=== PATIENT | female | born 1975 | race Caucasian/White ===

== ENCOUNTER 2021-10-04 12:45 | Outpatient (REF) | payer OTHER, SELFPAY ==
--- NOTE | ~2021-10-04 | MM_ITS ---
EXAMINATION: MM SCREENING DIGITAL BREAST TOMOSYNTHESIS, BILATERAL CLINICAL INFORMATION: Screening. Asymptomatic. The lifetime risk of breast cancer based on the Tyrer-Cuzick Model is 15%. COMPARISON: Mammography: 01/12/2019, 10/19/2017, 04/13/2016 TECHNIQUE: Digital mammography is performed in craniocaudal and mediolateral oblique views along with computer-aided detection (CAD). Digital breast tomosynthesis is performed in implant-displaced craniocaudal and implant-displaced mediolateral oblique views along with computer-aided detection (CAD). Synthesized 2D images are generated from the tomosynthesis. FINDINGS: There are scattered areas of fibroglandular density (ACR BI-RADS breast composition Category b). There are bilateral implants. Contours are smooth and similar to prior studies. Parenchymal pattern is similar to prior exams. There is no developing density or interval mass or architectural abnormality. No abnormal calcifications. The axilla and skin contours are unremarkable. No significant changes from prior exams. MM/MM tomosynthesis screen imp BI IMPRESSION: No mammographic evidence of malignancy. ASSESSMENT: BI-RADS 1: Negative RECOMMENDATION: Routine annual mammography screening. This patient's information was entered into a reminder system with a target due date for their next mammogram.
== END 2021-10-04 12:46 | disposition home or self-care (01) ==
LOC: HO.MAMMO 12:45
PROVIDERS: PCP Internal Medicine; Visit Provider Internal Medicine
DX: Z12.31 Encounter for screening mammogram for malignant neoplasm of breast (principal)
CPT/HCPCS: 77063; 77067

== ENCOUNTER 2022-03-22 10:54 | Outpatient (REF) | payer OTHER, SELFPAY ==
[2022-03-22 13:36] LABS: Basophils Percent Auto 0.6 % (0-2); Eosinophils Absolute Auto 0.1 X10*3/uL (0.0-0.4); Eosinophils Percent Auto 0.9 % (0-4); Hemoglobin 13.6 g/dl (12.0-16.0); Imm Gran Abs Auto 0.02 X10*3/uL (0.00-0.03); Imm Gran Pct Auto 0.3 % (0.0-0.4); Lymphocytes Absolute Auto 1.2 X10*3/uL (1.2-4.9); Lymphocytes Percent Auto 17.6 % (20-40); MANUAL DIFF FLAG NO; Mean Corpuscular HGB Conc 33.2 g/dl (31.0-35.0); Mean Corpuscular Hemoglobin 30.9 pg (27.0-33.0); Mean Corpuscular Volume 93.2 fL (80.0-98.0); Mean Platelet Volume 10.4 fL (9.4-12.3); Monocytes Absolute Auto 0.7 X10*3/uL (0.1-1.2); Monocytes Percent Auto 9.9 % (2-11); Neutrophils Absolute Auto 4.9 x10*3/uL (2.0-8.3); Neutrophils Percent Auto 70.7 % (45-73); Platelet Count 288 X10*3/uL (160-400); Red Cell Distribution Width 12.7 % (11.0-16.0); White Blood Count 6.9 X10*3/uL (4.8-10.8)
[2022-03-22 13:50] LABS: D Dimer High Sensitivity < 150 NG/ML
[2022-03-22 14:01] LABS: Alanine Aminotransferase 19 U/L (0-31); Albumin Level 4.1 g/dL (3.5-5.0); Alkaline Phosphatase 54 U/L (39-117); Anion Gap 9 (12-20); Aspartate Amino Transferase 17 U/L (5-31); Bilirubin Total 0.4 mg/dL (0.0-1.0); Blood Urea Nitrogen 12 mg/dL (9-16); Carbon Dioxide 27 mmol/L (22-29); Chloride 105 mmol/L (96-108); Cholesterol 227 mg/dL; Estimated Glomerular Filt Rate > 60; Glucose Random 94 mg/dL (60-115); HDL Cholesterol 63 mg/dL; LDL Cholesterol Calculated 144 mg/dl; Potassium 4.4 mmol/L (3.3-5.1); Sodium 137 mmol/L (135-145); Total Protein 6.7 g/dL (6.5-8.0); Triglycerides 103 mg/dL
== END 2022-03-22 10:55 | disposition home or self-care (01) ==
LOC: HO.MANLDS 10:54
PROVIDERS: Visit Provider Physician Assistant
DX: Z00.00 Encounter for general adult medical examination without abnormal findings (principal); M79.662 Pain in left lower leg
CPT/HCPCS: 36415; 80053; 80061; 85025; 85379

== ENCOUNTER 2022-03-22 11:34 | Outpatient (REF) | payer OTHER, SELFPAY ==
--- NOTE | ~2022-03-22 | US_ITS ---
EXAMINATION: US VENOUS ULTRASOUND WITH DOPPLER LOWER EXTREMITY, LEFT CLINICAL INFORMATION: Pain. COMPARISON: None TECHNIQUE: Ultrasound of the deep veins is performed from the hip to the calf with compression sonography and color and pulse Doppler assessment. Spectral analysis with color-flow imaging is performed. FINDINGS: There is normal venous compression and respiratory variation and augmented flow. The visualized common femoral vein, superficial femoral vein, profunda femoral vein, popliteal vein, and the trifurcation region shows no evidence of deep venous thrombosis. There is no significant popliteal fossa cyst. If the patient's symptoms persist, followup ultrasound in 5 days 7 days might be of value to exclude proximal propagation from a non-visualized calf vein. US/US venous duplex LE LT IMPRESSION: No DVT demonstrated in the left lower extremity.
== END 2022-03-22 11:35 | disposition home or self-care (01) ==
LOC: HO.US 11:34
PROVIDERS: Visit Provider Physician Assistant
DX: M79.662 Pain in left lower leg (principal)
CPT/HCPCS: 93971

== ENCOUNTER 2022-11-04 11:45 | Outpatient (REF) | payer OTHER, SELFPAY ==
--- NOTE | ~2022-11-04 | MM_ITS ---
EXAMINATION: MM SCREENING DIGITAL BREAST TOMOSYNTHESIS, BILATERAL CLINICAL INFORMATION: Screening. Asymptomatic. The lifetime risk of breast cancer based on the Tyrer-Cuzick Model is 15%. COMPARISON: Mammography: 10/04/2021, 01/12/2019, 10/19/2017 TECHNIQUE: Digital mammography is performed in craniocaudal and mediolateral oblique views along with computer-aided detection (CAD). Digital breast tomosynthesis is performed in implant-displaced craniocaudal and implant-displaced mediolateral oblique views along with computer-aided detection (CAD). Synthesized 2D images are generated from the tomosynthesis. FINDINGS: There are scattered areas of fibroglandular density (ACR BI-RADS breast composition Category b). There are no significant masses, abnormal calcifications, or other abnormalities. Parenchymal pattern is similar to prior studies. There is no developing density or architectural abnormality. There are bilateral implants. The implant contours are smooth. The axilla and skin contours are unremarkable. No significant changes. MM/MM tomosynthesis screen imp BI IMPRESSION: No mammographic evidence of malignancy. ASSESSMENT: BI-RADS 1: Negative RECOMMENDATION: Routine annual mammography screening. This patient's information was entered into a reminder system with a target due date for their next mammogram.
== END 2022-11-04 11:46 | disposition home or self-care (01) ==
LOC: HO.MAMMO 11:45
PROVIDERS: PCP Internal Medicine; Visit Provider Internal Medicine
DX: Z12.31 Encounter for screening mammogram for malignant neoplasm of breast (principal)
CPT/HCPCS: 77063; 77067

== ENCOUNTER 2022-12-27 15:10 | Outpatient (REF) | payer OTHER, SELFPAY ==
--- NOTE | ~2022-12-27 | XR_ITS ---
EXAMINATION: XR LUMBAR SPINE XR SACRUM/COCCYX CLINICAL INDICATION: Low back pain. COMPARISON: None available. TECHNIQUE: Lumbar spine 3 views. Sacrum and coccyx 3 views. FINDINGS: LUMBAR SPINE: There is normal lumbar lordosis. The vertebral heights are normal. There is grade 1 anterolisthesis L3 over L4. The rest of the vertebral alignment is normal. Mild loss of L3-L4 disc height is seen. The rest of the disc heights are normal. No acute fracture, lytic or sclerotic process seen. The SI joints are symmetrical and normal. SACRUM AND COCCYX: There is no visible fracture or bony abnormality. No lytic or sclerotic process. The soft tissues are normal. XR/XR lumbar spine 2-3V IMPRESSION: 1. Grade 1 anterolisthesis L3 over L4 with mild degenerative disc changes L3-L4 disc level. Otherwise unremarkable lumbar spine. 2. The sacrum is unremarkable.
--- NOTE | ~2022-12-27 | XR_ITS ---
EXAMINATION: XR LUMBAR SPINE XR SACRUM/COCCYX CLINICAL INDICATION: Low back pain. COMPARISON: None available. TECHNIQUE: Lumbar spine 3 views. Sacrum and coccyx 3 views. FINDINGS: LUMBAR SPINE: There is normal lumbar lordosis. The vertebral heights are normal. There is grade 1 anterolisthesis L3 over L4. The rest of the vertebral alignment is normal. Mild loss of L3-L4 disc height is seen. The rest of the disc heights are normal. No acute fracture, lytic or sclerotic process seen. The SI joints are symmetrical and normal. SACRUM AND COCCYX: There is no visible fracture or bony abnormality. No lytic or sclerotic process. The soft tissues are normal. XR/XR sacrum coccyx min 2V IMPRESSION: 1. Grade 1 anterolisthesis L3 over L4 with mild degenerative disc changes L3-L4 disc level. Otherwise unremarkable lumbar spine. 2. The sacrum is unremarkable.
== END 2022-12-27 15:11 | disposition home or self-care (01) ==
LOC: HO.XRAY 15:10
PROVIDERS: PCP Internal Medicine; Visit Provider Internal Medicine
DX: M54.50 Low back pain, unspecified (principal)
CPT/HCPCS: 72100; 72220

== ENCOUNTER 2023-11-13 16:24 | Outpatient (REF) | payer OTHER, SELFPAY ==
--- NOTE | ~2023-11-13 | MM_ITS ---
EXAMINATION: MM SCREENING DIGITAL BREAST TOMOSYNTHESIS, BILATERAL WITH BREAST IMPLANTS CLINICAL INFORMATION: Screening. Asymptomatic. COMPARISON: Mammography: This study is compared with prior examinations dating back to 2018. TECHNIQUE: Digital mammography is performed in craniocaudal and mediolateral oblique views along with computer-aided detection (CAD). Digital breast tomosynthesis is performed in implant-displaced craniocaudal and implant-displaced mediolateral oblique views along with computer-aided detection (CAD). Synthesized 2D images are generated from the tomosynthesis. FINDINGS: There are scattered areas of fibroglandular density (ACR BI-RADS breast composition Category b). There are bilateral, mammographically intact, retropectoral saline breast implants. There are no significant masses, abnormal calcifications, or other abnormalities. MM/MM tomosynthesis screen imp BI IMPRESSION: There are no significant changes from prior study. ASSESSMENT: BI-RADS BI-RADS 1 - Negative RECOMMENDATION: Routine annual mammography screening. 1 year F/U This patient's information was entered into a reminder system with a target due date for their next mammogram.
== END 2023-11-13 16:25 | disposition home or self-care (01) ==
LOC: HO.MAMMO 16:24
PROVIDERS: PCP Internal Medicine; Visit Provider Internal Medicine
DX: Z12.31 Encounter for screening mammogram for malignant neoplasm of breast (principal)
CPT/HCPCS: 77063; 77067

== ENCOUNTER → 2023-11-13 16:30 | Outpatient (BNV) | payer OTHER, SELFPAY | PROVIDERS: PCP Internal Medicine; Visit Provider Radiology Diagnostic Radiology | DX: Z12.31 Encounter for screening mammogram for malignant neoplasm of breast (principal) | CPT/HCPCS: 77063; 77067 ==

== ENCOUNTER 2024-11-25 16:09 | Outpatient (REF) | payer OTHER, SELFPAY ==
--- OUTSIDE RECORDS SUMMARY | 2024-11-25 18:50 | XMS_ITS | Data Portability ---
Author Organization [facility] Address [address] [place] [address] Assessment No assessment recorded. Plan of Treatment Reminders Order Date Submit Date Provider Last Modified By Organization Details Last Modified Time Details Appointments None recorded. Lab D-dimer, quant, plasma 2021 [facility], [address] [place] [address], [id number], 13:39:57 CMP, serum or plasma 2021 022 [facility], [address] [place] [address], [address], 2 09:30:46 lipid panel, blood 2021 [facility], [address] [place] [address], [address], 2 09:30:45 CBC w/ auto diff 2021 022 [facility], [address] [place] [address], [address], 09:30:46 Referral None recorded. Procedures None recorded. Surgeries None recorded. Imaging XR, sacrum + coccyx 2022 023 [facility], [address] [place] [address], [address], 3 07:21:07 XR, lumbosacra l spine 04/25/ 2023 04/25/2 023 [facility], [address] [place], [address], 3 23:09:52 US, duplex, venous, lower extremity 2021 022 [facility], [address] [place], [address], 2 05:08:12 holter monitor 2021 022 [email or web address] 10 [facility] Central Scheduling, [address] [place], [address], 2 10:17:27 Medication Orders hydrocorti sone 2.5 % topical cream with perineal applicator 2022 023 [facility], [address] [place], [address], 3 14:38:40 cephalexin 500 mg tablet [address]/Pharmacy #2024, [address] [place], [address], 3 14:05:11 Medrol (Mina) 4 mg tablets in a dose pack [address]/Pharmacy #2024, [address] [place], [address], 3 14:05:23 Patient TargetsNo targets recorded. Patient Instructions Encounter Date Encounter Id Patient Instructions Last Modified By Organization Details Last Modified Time 07/13/2018 [id number] [email or web address] Not available 05/2018 17:08:29 Reason for Referral None Reported. Results Created Date Observation Date Name Description Value Unit Range Abnormal Flag Note LastModifiedBy Organization Detail LastModifiedTime 01/15/2001/12/2019 alex MCMILLAN bilat eral No observ ation record ed. [email or web address] [facility] (Medical Records) [address] [facility] [place], [address], 01/14/2019 16:42:01 04/01/20 19 03/25/2019 pap test, thinp rep, cervi jose francisco No observ ation record ed. [email or web address] Not Available 2018 10:45:38 06/09/20 20 06/02/2020 sleep study , basel ine diagn ostic polys omnog inez* No observ ation record ed. [email or web address] Not Available 2019 08:47:40 10/05/19 22 10/04/2021 MAMMO , scree tiago, digit al, bilat eral No observ ation record ed. [email or web address] [address] [place], [address], 10/05/2021 12:17:35 03/24/20 22 03/22/2022 US, nathaniel x, gioou s, lower extre mity No observ ation record ed. [facility] (Medical Records) [address] [facility] [place], [address], 03/25/2022 09:33:47 11/08/19 23 11/04/2022 MAMMO , scree tiago, digit al, bilat eral No observ ation record ed. [email or web address] [place], [address], 11/07/2022 11:56:49 01/06/20 23 12/27/2022 XR, sacru m + coccy x No observ ation record ed. [email or web address] [facility] Central Sched[facility] [address] [facility], [address], 01/11/2023 14:08:08 01/06/20 23 12/27/2022 XR, lumbo sacra l spine No observ ation record ed. [email or web address] (Medical Records) [address] [place], [address], 01/11/2023 14:08:09 02/01/20 23 01/31/2023 US, pelvi s, compl ete No observ ation record [facility]. [email or web address] [employer] [employer] [address], [address], 01/31/2023 13:39:21 12/09/19 24 11/13/2023 MAMMO , scree tiago, digit al, bilat eral No observ ation record ed. [email or web address] [facility] [address] [place], [address], 12/11/2023 08:25:54 Result Notes None recorded. Problems Name Problem SNOMED Code Status Onset Date Resolution Date Notes Provider Name and Address Organization Details Recorded Time Palpitati ons 83183780 Active 2021 TAISHA PEÑA [address] [place] [address], [address], [facility] 2 09:21:58 Celluliti s 802842952 Active 2021 TAISHA PEÑA [address] [place] [address], [address], [facility] 2 10:24:31 Pain of left calf 650790925535 9109 Active 2021 TAISHA PEÑA [address] [place] [address], [address], [facility] 2 10:24:59 Celluliti s of lower limb 776437291 Active 2021 TAISHA PEÑA [address] [place] [address], [address], [facility] 2 10:19:47 Sacral back pain 19359356 Active 2022 Willian Lau DO [address] [place] [address], [address], [facility] 3 14:36:26 Bleeding internal hemorrhoi ds 21728505 Active 2022 Willian CoxTayo Lau, DO [address] [place], [address], [facility] 3 14:37:41 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 Procedures Surgical History Date Name Laterality Status Provider Name and Address Organization Details Recorded Time 03/25/2019 Date of Last Pap Smear completed Parisa Pablo [facility] 04/01/2019 09:19:34 Imaging Results Imaging Date Name Status LastModified by Denise [email or web address] Details LastModified Time 01/12/2019 MAMMO, screening, bilateral completed dex [facility] (Medical Records) [address] [facility] [place], [address], 01/14/2019 16:42:01 03/25/2019 pap test, thinprep, cervical completed Information not available 04/01/2019 10:45:38 06/02/2020 sleep study, baseline diagnostic polysomnogram* completed Information not available 06/10/2020 08:47:40 10/04/2021 MAMMO, screening, digital, bilateral completed [email or web address] [address] [place], [address], 10/05/2021 12:17:35 03/22/2022 US, duplex, venous, lower extremity completed [email or web address] [facility] (Medical Records) [address] [facility], [address], 03/25/2022 09:33:47 11/04/2022 MAMMO, screening, digital, bilateral completed [email or web address] [address] [place], [address], 11/07/2022 11:56:49 12/27/2022 XR, sacrum + coccyx completed [email or web address] [facility] Central Scheduling [address] [facility] [place], [address], 01/11/2023 14:08:08 12/27/2022 XR, lumbosacral spine completed [email or web address] (Medical Records) [address] [place], [address], 01/11/2023 14:08:09 01/31/2023 US, pelvis, complete completed [facility] [employer] [facility] [address] [place], [address], 01/31/2023 13:39:21 11/13/2023 MAMMO, screening, digital, bilateral completed [email or web address] [facility] [place] [address] [place], [address], 12/11/2023 08:25:54 Procedure Notes None recorded. Medical Equipment None Reported. Allergies No known drug allergies Medications Name Sig Start Date Stop Date Status Note LastModified by Organization Details LastModified Time amoxicillin 500 mg capsule 07/13 completed Not Available Not Available Not Available prednisone 10 mg tablet TAKE 4 TABLETS BY MOUTH X 3 DAYS,3 TABLETS X 3 DAYS,2 TABLETS X 3 DAYS,1 TABLET X 3 DAYS 12/27 completed Not Available Not Available Not Available hydrocortis one 2.5 % topical cream with perineal applicator APPLY A THIN LAYER TO THE AFFECTED AREA(S) BY TOPICAL ROUTE 2-4 TIMESDAIL Y active Not Available Not Available No t Available prednisolon e acetate 1 % eye drops,suspe nsion 02/02 completed Not Available Not Available Not Available triamcinolo ne acetonide 0.1 % topical ointment 02/02 completed Not Available Not Available Not Available omeprazole 20 mg capsule,del ayed release 02/02 completed Not Available Not Available Not Available cephalexin 500 mg tablet TAKE 1 TABLET BY MOUTH EVERY 6 HOURS FOR 10 DAYS 12/27 completed Not Available Not Available Not Available fluocinonid e 0.05 % topical solution APPLY TWICE A DAY TO THE SCALP AND EARS UP TO 2 WEEKS ON, 1 WEEK OFF NEEDED 03/22 completed Not Available Not Available Not Available methylpredn isolone 4 mg tablets in a dose pack TAKE 6 TABLETS ON DAY 1 DIRECTED ON PACKAGE AND DECREASE BY 1 TAB EACH DAY FOR A TOTAL OF 6 DAYS 12/27 completed Not Available Not Available Not Available doxycycline hyclate 100 mg tablet TAKE 1 TABLET BY MOUTH TWICE A DAY FOR 10 DAYS 12/27 completed Not Available Not Available Not Available Gavilyte-C 240 gram-22.72 gram-6.72 gram-5.84 gram oral solution 02/02 completed Not Available Not Available Not Available Vitals Date Recorded Body height Body mass index (BMI) Body weight Oxygen saturation Oxygen saturation in Arterial blood by Pulse oximetry Heart rate Systolic blood pressure Diastolic blood pressure Provider Name and Address Organization Details Last Updated DateTime 2 162.56 cm 33.3 kg/m2 78148.9 2 g 98 % 98 % 79 /min 130 mm[Hg] 90 mm[Hg] Marie Pool [facility] 2 09:04:45 Date Recorded Body height Heart rate Oxygen saturation Oxygen saturation in Arterial blood by Pulse oximetry Systolic blood pressure Diastolic blood pressure Provider Name and Address Organization Details Last Updated DateTime 2 162.56 cm 90 /min 98 % 98 % 118 mm[Hg] 70 mm[Hg] Parisa Pablo [facility] 2 10:10:20 Date Recorded Body height Body mass index (BMI) Body weight Oxygen saturation Oxygen saturation in Arterial blood by Pulse oximetry Heart rate Systolic blood pressure Diastolic blood pressure Provider Name and Address Organization Details Last Updated DateTime 3 162.56 cm 34 kg/m2 21565.2 9 g 98 % 98 % 69 /min 140 mm[Hg] 82 mm[Hg] Charo Beck [facility] 3 14:07:07 Date Recorded Body weight Heart rate Oxygen saturation Oxygen saturation in Arterial blood by Pulse oximetry Body temperature Systolic blood pressure Diastolic blood pressure Provider Name and Address Organization Details Last Updated DateTime 8 97645.3 3 g 66 /min 98 % 98 % 98.3 [degF] 120 mm[Hg] 82 mm[Hg] Maryam Balicki [facility] 8 15:55:06 Social History Question Answer Notes LastModified by Organizat ion Details LastModified Time Tobacco Smoking Status Never Smoker Marie fernando [facility] 02/02/2022 09:01:51 What Was The Date Of Your Most Recent Tobacco Screening? 12/27/2022 [email or web address] Information not available 12/27/2022 Do You Or Have You Ever Used Any Other Forms Of Tobacco Or Nicotine? No [email or web address] Information not available 12/27/2022 Sex: Unknown Functional Status None recorded. Mental Status None recorded. Family History Nothing Reported. Medical History No medical history recorded. Gynecological History Statement/Question Response Date of Last Pap Smear 03/25/2019 Obstetrics History GPAL:G 0 P 0 0 0 0 Immunizations Vaccine Type Date Status Note Provider Nam e and Address Organization Details Recorded Time COVID-19, mRNA, LNP-S, PF, 100 mcg/0.5mL dose or 50 mcg/0.25mL dose 09/14/2020 completed Not Available [facility] 3 16:48:59 COVID-19, mRNA, LNP-S, PF, 100 mcg/0.5mL dose or 50 mcg/0.25mL dose 10/14/2020 completed Not Available [facility] 3 16:48:59 Past Encounters Encounter ID Performer Location Encounter Start Date Encounter Closed Date Diagnosis/Indication Diagnosis SNOMED-CT Code Diagnosis ICD10 Code Diagnosis Note [id number] Areli Christensen NP, S [facility] [address] [facility], [place] [address] 07/13/2018 15:50:36 07/13/2018 16:27:30 Lipoma of skin 660340345 D17.30 Uveitis 698519609 H20.9 f/u with opthalmolo gy & rheumatolo gy [id number] TAISHA PEÑA [facility] [address] [facility],[place] [address] 02/02/2022 08:57:44 02/02/2022 13:28:39 Active or passive immunization 490217628 Z23 advised Adult heal th examination 805864617 Z00.00 will fu with blood work Palpitations 42235801 R0 0.2 will fu with a holter [id number] TAISHA PEÑA [facility] [address] [facility] [address],[place] [address] [place] [address] 03/22/2022 10:05:37 03/22/2022 11:09:44 Cellulitis 168233894 L03.116 will fu with abx and steriods Pain of left calf 133044 6718 361285 M79.662 will fu with US duplex DVT r/o given calf tenderness , swelling and sudden onset rash [id number] Willian Lau DO [facility] [address] [facility] [address],[place] [address] 12/27/2022 13:54:34 12/27/2022 14:42:04 Sacral back pain 31876129 M54.50 Bleeding i nternal hemorrhoids 10318078 K64.8 Health Concerns Section Related Observation LastModified by Organization Detai ls LastModified Time None Recorded Concern Status LastModified by Organization Details LastModified Time None Recorded Advance Directives Directive None Recorded Payers Encounter Date Sequence Insurance Name Policy Number Policy Zarate Covered Member ID Zarate Member ID Guarantor Name 07/13/2018 1 [facility] [id number] 1 Tessie B Shell [id number] Tessie Shell 02/02/2022 1 [facility] [id number] 1 Tessie B Shell [id number] Tessie Shell 03/22/2022 1 [facility] [id number] 1 Tessie B Shell [id number] Tessie Shell 12/27/2022 1 [facility] [id number] 1 Tessie B Shell [id number] Tessie Shell Notes Date Note Type Note Provider Name a nd Address Organization Details Recorded Time 8 text/html BAKARI titer off - done by by opthalmologist, diagnosed recently with iritis on prednisolone gtts Pt was having blurry vision f/u rheumatology appt this upcoming Monday has had uvula swell up on/off- happened again last week, resolved after 1/2 day last night felt lump just below right collarbone and is very concerned Up to date with [place] operator MD and mammograms Denies fever/CP/SOB/cough Areli Christensen NP, S [address] [place], [address], [facility] 07/13/2018 17:08:43 2 text/html Annual WellnessReported bypatient.Diet and Nutrition:healthy diet Fracture Risk:no history of fractures; no recent explained fracture; no sudden unexplained fractures; no previous musculoskeletal injuries Physical Activity:exercises on a regular basis; recent increase in physical activity; good physical condition Additional Lifestyle Factors:no tobacco use; no alcohol intake; stopped drinking alcohol Depression Risk:never feels sad, empty, or tearful; no loss of interest in activities; no significant changes in weight; no sleep disturbances or insomnia; no agitation; no loss of energy; no feelings of worthlessness or guilt; no thoughts of suicide; no history of depression; no history of mood disorders Hearing:no loss of hearing Vision:no vision problems; last eye appt was last month the patient reports she has been having intermittent heart palpitations the patient reports that it feels like a racing sensation and feels like a skipped beat; not correlated with anything in particular per the patient reports that she notices her heart rate seems like it is kicking up to high when exercising, not appropriate or expected rise (around 190 to 209) which abnormally high TAISHA PEÑA [address] [place], [address], [facility] 02/02/2022 09:40:45 2 text/html c/o rash the patient reports that she was outside the day before today when she developed the rashno bites, no new lotions, medications etc the rash is a meaty red, painful to the touch, warm to the touchshe also has left calf pain, cramping and tender to the touch patient marked itno movement outside the borderclear demarcations looks like an infection but also need to r/o DVT given other symptoms denies sob, chest pain TAISHA PEÑA [address] [place], [address], [facility] 03/22/2022 10:45:35 3 text/html here for rechk and eval of ongoing low back painstates located middle of back at base of spinepressure like aching no radiation down legsalso pt has been bothered with occ rectal bleed with bm and knows she has int hemorrhoids Willian Lau, DO [address] [facility], [place], [address], [facility] 12/27/2022 14:40:55 OBGyn Episode No OBEpisode recorded.
== END 2024-11-25 16:10 | disposition home or self-care (01) ==
LOC: HO.MAMMO 16:09
PROVIDERS: PCP Internal Medicine; Visit Provider Internal Medicine
DX: Z12.31 Encounter for screening mammogram for malignant neoplasm of breast (principal)
CPT/HCPCS: 77063; 77067

== ENCOUNTER → 2024-11-25 16:15 | Outpatient (BNV) | payer OTHER, SELFPAY | PROVIDERS: PCP Internal Medicine; Visit Provider Internal Medicine | DX: Z12.31 Encounter for screening mammogram for malignant neoplasm of breast (principal) | CPT/HCPCS: 77063; 77067 ==

== ENCOUNTER 2025-07-15 09:47 | Outpatient (REF) | payer OTHER, SELFPAY ==
[2025-07-15 10:03] LABS: MANUAL DIFF FLAG NO
[2025-07-15 10:52] LABS: Hematocrit 40.5 % (37.0-47.0); Hemoglobin 13.2 g/dl (12.0-16.0); Imm Gran Abs Auto 0.01 X10*3/uL (0.00-0.03); Imm Gran Pct Auto 0.2 % (0.0-0.4); Lymphocytes Absolute Auto 1.3 X10*3/uL (1.2-4.9); Mean Corpuscular HGB Conc 32.6 g/dl (31.0-35.0); Mean Corpuscular Hemoglobin 31.5 pg (27.0-33.0); Mean Corpuscular Volume 96.7 fL (80.0-98.0); NRBC Abs Auto 0.000 X10*3/uL (0.0-0.012); NRBC Pct Auto 0.0 /100WBC (0.0-0.2); Platelet Count 295 X10*3/uL (160-400); Red Blood Count 4.19 X10*6/uL (4.20-5.50); White Blood Count 4.5 X10*3/uL (4.8-10.8)
--- OUTSIDE RECORDS SUMMARY | 2025-07-15 11:02 | XMS_ITS | Encounter Summary ---
Author Organization [facility] Address [address] [place] [address] Phone Care Team Providers Care Critical Care Technician Name Role Phone Willian Lau DO Primary Care Provider [phone] Encounter Details Date Type Department Care Team (Late st Contact Info) Description 05/15/2018 Transcribe Orders [facility] Ph[facility] [address] [place] [address] Willian Lau DO [address] [facility] [place] [address] [email or web address] Primary iridocyclitis of both eyes (Primary Dx) Social History Tobacco Use Types Packs/Day Years Used Date Smoking Tobacco: Never Assessed Comments Unknown Sex and Gender Information Value Date Recorded Sex Assigned at Not on file Legal Sex Female 9:28 PM EDT Gender Identity Not on file Sexual Orientation Not on file documented as of this encounter Plan of Treatment Not on file documented as of this encounter Results * CCP IgG antibodies (05/15/2018 9:09 AM EDT) CCP AB, S <15.6 <20.0 (Negative) U [facility]PT OF LAB MED AND PAT+ Blood 05/15/2018 9:09 AM EDT 05/15/2018 9:12 AM EDT us Willian Lau DO LAB BLOOD BKR ORDERABLES Final R esult [facility] OF LAB MED AND PAT+ [address] [place] [address] * Sedimentation rate (ESR) (05/15/2018 9:09 AM EDT) ESR 3 0 - 20 mm/h [facility] Blood 05/15/2018 9:09 AM EDT 05/15/2018 9:11 AM EDT us Willian A Bigda DO LAB BLOOD BKR ORDERABLES Final R esult [address] [address] * Rheumatoid factor (05/15/2018 9:09 AM EDT) RHEUMATOID FACTOR <10.0 0.0 - 14.0 IU/ml [facility] Blood 05/15/2018 9:09 AM EDT 05/15/2018 9:11 AM EDT us Willian A Bigda DO LAB BLOOD BKR ORDERABLES Final R esult Performing Organization Address City/[facility]/ZIP Co de Phone Number [address] [address] * Angiotensin converting enzyme, blood (05/15/2018 9:09 AM EDT) ANGIOTENSIN CONV. ENZ 29 8 - 53 U/L [facility] OF LAB MED AND PAT+ Blood 05/15/2018 9:09 AM EDT 05/15/2018 9:12 AM EDT us Wililan A Bigda DO LAB BLOOD ORDERABLES Final Resul t [facility] OF LAB MED AND PAT+ [address] [place] [address] * HLA-B27, blood (05/15/2018 9:09 AM EDT) HLA-B27 RESULT Negative Not Applicable [facility] OF LAB MED AND PAT+ INTERPRETATION SEE NOTE [facility] LAB MED AND PAT+ Comment: (NOTE) HLA-B27 antigen was not detected. ADDITIONAL INFORMATION Method: Flow Cytometry Performing Laboratory CLIA# [id number] Blood 05/15/2018 9:09 AM EDT 05/15/2018 9:12 AM EDT us Willian Donaldda DO LAB BLOOD ORDERABLES Final Resul t [facility] OF LAB MED AND PAT+ [address] [place] [address] * (ABNORMAL) Antinuclear antibody (BAKARI) (05/15/2018 9:09 AM EDT) BAKARI SCREEN ON HEP 2 Positive(A ) Negative [facility] Comment:An BAKARI Titer has bee n reflexed. The results will follow. Blood 05/15/2018 9:09 AM EDT 05/15/2018 9:11 AM EDT us Willian Lau DO LAB BLOOD BKR ORDERABLES Final R esult Performing Organization Address City/[facility]/ZIP Co de Phone Number [facility] [address] [place] [address] documented in this encounter Visit Diagnoses Diagnosis Primary iridocyclitis of both eyes- Primary documented in this encounter Care Teams Critical Care Technician Relationship Specialty Start Date End Date Willian Lau DO [email or web address] PCP - General Internal Medicine 05/15/18 documented as of this encounter Additional Source Comments The information contained in this document represents components of the legal health record. It is not the complete legal health record.[facility]
--- OUTSIDE RECORDS SUMMARY | 2025-07-15 11:02 | XMS_ITS | Data Portability ---
Author Organization [facility] Telehealth Patient Home Address [address] [place] [address] Assessment No assessment recorded. Plan of Treatment Reminders Order Date Submit Date Provider Last Modified By Organization Details Last Modified Time Details Appointments ERWINUA L EXAM 2025 09:30A M TAISHA PEÑA Not available Not available Not available Lab lipid panel , serum 2024 [facility], [address] [place] [address], [address], 06/25/2025 16:16:37 vitam in D, 25-hy droxy , total , serum 2024 [facility], [address] [place] [address], [address], 06/25/2025 16:16:37 vitam in B12 + folat e, serum or blood 2024 [facility], [address] [place] [address], [address], 06/25/2025 16:16:37 iron + TIBC + martine tin, serum 2024 [facility], [address] [place] [address], [address], 06/25/2025 16:16:36 TSH + free T4, serum 2024 [facility], [address] [place] [address], [address], 06/25/2025 16:16:36 hemog lobin A1c, QN, blood 2024 025 [facility], [address] [place] [address], [address], 06/25/2025 16:16:37 CBC w/ auto diff 2024 025 [facility], [address] [place] [address], [address], 06/25/2025 16:16:37 CMP, serum or plasm a 2024 025 [facility], [address] [place] [address], [address], 06/25/2025 16:16:37 D-dim er, quant , plasm a 2021 022 [facility], [address] [place] [address], [address], 03/23/2022 13:39:57 CMP, serum or plasm a 2021 022 [facility], [address] [place] [address], [address], 02/02/2022 09:30:46 lipid panel , blood 2021 022 [facility], [address] [place] [address], [address], 02/02/2022 09:30:45 CBC w/ auto diff 2021 022 [facility], [address] [place] [address], [address], 02/02/2022 09:30:46 Referral gastr praveen snow ist refer ral 2024 025 [email or web address] 10 [facility], [address], [place], [address], 06/30/2025 09:46:18 Procedures None recor ded. Surgeries None recor ded. Imaging US, echoc ardio gram - Not Requi redPr ocedu re codes : 40303 Call Refer ence #: [id number] Resol ution : Compl eted on 06/27 at 12:59 pm. Call ref #[id number] 25. 2024 025 [email or web address] [facility], [address], [address], [place], [address], 07/11/2025 10:01:48 exerc ise stres s test 2024 025 [email or web address] 10 [facility], [address], [address], [place], [address], 07/09/2025 08:17:07 XR, sacru m + coccy x 2022 023 [facility], [address] [place], [address], 01/06/2023 07:21:07 XR, lumbo sacra l spine 2022 023 [facility], [address] [place], [address], 01/05/2023 23:09:52 US, duple x, venou s, lower extre mity 2021 022 [facility], [address] [place], [address], 03/25/2022 05:08:12 romie r monit or 2021 022 [email or web address] 10 [facility], [address] [place], [address], 03/02/2022 10:17:27 Medication Orders hydro corti sone 2.5 % topic al cream with perin eal appli cator [address]acy #2024, [address] [place], [address], 06/25/2025 15:29:07 cepha lexin 500 mg table t [address]Pharmacy #2024, [address] [place], [address], 12/27/2022 14:05:11 Medro l (Mina) 4 mg table ts in a dose pack [address]/Pharmacy #2024, [address] [place], [address], 12/27/2022 14:05:23 Patient TargetsNo targets recorded. 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 [facility] (Medical Records) [address] [place], [address], 01/14/2019 16:42:01 04/01/2003/25/2019 pap test, thinp rep, cervi jose francisco No observ ation record ed. [email or web address] Not Available 2018 10:45:38 06/09/20 20 06/02/2020 sleep study , basel ine diagn ostic polys omnog inez* No observ ation record ed. [email or web address] Not Available 2019 08:47:40 10/05/19 22 10/04/2021 MAMMO , scree tiago, digit al, bilat eral No observ ation record ed. [email or web address] [address] [place], [address], 10/05/2021 12:17:35 03/24/20 22 03/22/2022 US, duple x, venou s, lower extre mity No observ ation record ed. [facility] (Medical Records) [address] [place], [address], 03/25/2022 09:33:47 11/08/19 23 11/04/2022 MAMMO , scree tiago, digit al, bilat eral No observ ation record ed. [email or web address] [address] [place], [address], 11/07/2022 11:56:49 01/06/20 23 12/27/2022 XR, sacru m + coccy x No observ ation record ed. [email or web address] [facility] [address] [place], [address], 01/11/2023 14:08:08 01/06/20 23 12/27/2022 XR, lumbo sacra l spine No observ ation record ed. [email or web address] (Medical Records) [address] [place], [address], 01/11/2023 14:08:09 02/01/20 23 01/31/2023 US, pelvi s, compl ete No observ ation record ed. [facility] [address], [address], 01/31/2023 13:39:21 12/09/19 24 11/13/2023 MAMMO , scree tiago, digit al, bilat eral No observ ation record ed. [email or web address] [address] [place], [address], 12/11/2023 08:25:54 12/03/1911/25/2024 MAMMO , scree tiago, digit al, bilat eral No observ ation record ed. [email or web address] [address] [place], [address], 12/03/2024 07:41:49 Result Notes None recorded. Problems Name Problem SNOMED Code Status Onset Date Resolution Date Notes Provider Name and Address Organization Details Recorded Time Palpitati ons 21090573 Active 2021 TAISHA PEÑA [address] [place] [address], [address], [facility] 2 09:21:58 Celluliti s 142595760 Active 2021 TAISHA PEÑA [address] [place] [address], [address], [facility] 2 10:24:31 Pain of left calf 804248991388 9109 Active 2021 TAISHA PEÑA [address] [place] [address], [address], [facility] 2 10:24:59 Celluliti s of lower limb 769153286 Active 2021 TAISHA PEÑA [address] [place] [address], [address], [facility] 2 10:19:47 Sacral back pain 43543904 Active 2022 Willian Lau DO [address] [place] [address], [address], [facility] 3 14:36:26 Bleeding internal hemorrhoi ds 68265831 Active 2022 Willian Lau DO [address] [place] [address], [address], [facility] 3 14:37:41 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 Procedures Surgical History Date Name Laterality Status Provider Name and Address Organization Details Recorded Time 03/25/2019 Date of Last Pap Smear completed Parisa Pablo [facility] 04/01/2019 09:19:34 Imaging Results None recorded. Procedure Notes None recorded. Medical Equipment None [...] completed Not Available Not Available Not Available fluorouraci l 5 % topical cream APPLY TO AREA OF SUN DAMAGE TWICE A DAY FOR UP TO 6 WEEKS OR UNTIL RED AND CRUSTED 06/25 completed Not Available Not Available Not Available hydrocortis one 2.5 % topical cream with perineal applicator APPLY A THIN LAYER TO THE AFFECTED AREA(S) BY TOPICAL ROUTE 2-4 TIMESDAIL Y 06/25 completed Not Available Not Available Not Available prednisolon e acetate 1 % eye [...] blood by Pulse oximetry Heart rate Systolic And Diastolic Provider Name and Address Organization Details Last Updated DateTime 3 162.56 cm 34 kg/m2 58776.2 9 g 98 % 98 % 69 /min 140/82 mm[Hg] Charo Bcek [facility] 3 14:07:07 Date Recorded Body height Body mass index (BMI) Body weight Oxygen saturation Oxygen saturation in Arterial blood by Pulse oximetry Heart rate Systolic And Diastolic Provider Name and Address Organization Details Last Updated DateTime 2 162.56 cm 33.3 kg/m2 42183.9 2 g 98 % 98 % 79 /min 130/90 mm[Hg] Marie Pool [facility] 2 09:04:45 Date Recorded Body height Heart rate Oxygen saturation Oxygen saturation in Arterial blood by Pulse oximetry Systolic And Diastolic Provider Name and Address Organization Details Last Updated DateTime 2 162.56 cm 90 /min 98 % 98 % 118/70 mm[Hg] Parisa Pablo [facility] 2 10:10:20 Date Recorded Body height Body mass index (BMI) Body weight Heart rate Oxygen saturation Oxygen saturation in Arterial blood by Pulse oximetry Systolic And Diastolic Provider Name and Address Organization Details Last Updated DateTime 5 162.56 cm 34.8 kg/m2 18965.2 5 g 70 /min 98 % 98 % 130/68 mm[Hg] Charo Beck [facility] 5 15:30:34 Date Recorded Body weight Heart rate Oxygen saturation Oxygen saturation in Arterial blood by Pulse oximetry Body temperature Systolic And Diastolic Provider Name and Address Organization Details Last Updated DateTime 8 64490.3 3 g 66 /min 98 % 98 % 98.3 [degF] 120/82 mm[Hg] Maryam Palafox [facility] 8 15:55:06 Social History Question Answer Notes LastModified by Organizat ion Details LastModified Time Tobacco Smoking Status Never Smoker Marie fernando [facility] 02/02/2022 09:01:51 What Was The Date Of Your Most Recent Tobacco Screening? 06/25/2025 [email or web address] Information not available 06/25/2025 Sex: Unknown Functional Status Question Answer Note LastModified by Organization D etails LastModified Time Do you or have you ever used any other forms of tobacco or nicotine? No [email or web address] Information not available 12/27/2022 Mental Status None recorded. Family History Nothing Reported. Medical History No medical history recorded. Gynecological History Statement/Question Response Date of Last Pap Smear 03/25/2019 Obstetrics History GPAL:G 0 P 0 0 0 0 Immunizations Vaccine Type Date Status Note Provider Nam e and Address Organization Details Recorded Time COVID-19, mRNA, LNP-S, PF, 100 mcg/0.5mL dose or 50 mcg/0.25mL dose 09/14/2020 completed Not Available [facility] 3 16:48:59 COVID-19, mRNA, LNP-S, PF, 100 mcg/0.5mL dose or 50 mcg/0.25mL dose 10/14/2020 completed Not Available [facility] 3 16:48:59 Past Encounters Encounter ID Performer Location Encounter Start Date Encounter Closed Date Diagnosis/Indication Diagnosis SNOMED-CT Code Diagnosis ICD10 Code Diagnosis IMO Codes Diagnosis Note [id number] Willian Lau DO [facility] [address] [facility],[place] [address] 07/13/2018 15:50:36 07/13/2018 16:27:30 Lipoma of skin 989261595 D17.30 Uveitis 364889120 H20.9 f/u with opthalmolo gy & rheumatolo gy [id number] Willina Lau [facility] [address] [facility],[place] [address] 02/02/2022 08:57:44 02/02/2022 13:28:39 Active or passive immunization 043248550 Z23 advised Adult heal th examination 796252549 Z00.00 will fu with blood work Palpitations 16436381 R0 0.2 will fu with a holter [id number] Willian Lau [facility] [address] [place] [address] 03/22/2022 10:05:37 03/22/2022 11:09:44 Cellulitis 497861872 L03.116 will fu with abx and steriods Pain of left calf 245858 2506 537475 M79.662 will fu with US duplex DVT r/o given calf tenderness , swelling and sudden onset rash [id number] Willian Lau [facility] [address],[place] [address] 12/27/2022 13:54:34 12/27/2022 14:42:04 Sacral back pain 31608699 M54.50 Bleeding i nternal hemorrhoids 32994970 K64.8 [id number] Willian Lau [facility] [address] [place] [address],[place] [address] 06/25/2025 15:21:29 06/27/2025 09:52:24 Depression screening 475153646 Z13.31 negative Atypical chest pain 1025 05531 R07.89 110565 lab work due, recommende d additional work up for the fatigue and chest pain Fatigue 12233060 R53.83 9312917 needs lab work History an d physical examination, annual for health maintenance 47253681 Z00.00 6027741897 will f/u with blood work Screening colonoscopy 44 9491277 Z12.11 163366 will set up with GI screening Health Concerns Section Related Observation LastModified by Organization Detai ls LastModified Time None Recorded Concern Status LastModified by Organization Details LastModified Time None Recorded Advance Directives Directive None Recorded Payers Insurance Date Sequence Insurance Name Policy Number Policy Zarate Covered Member ID Zarate Member ID Guarantor Name 06/22/2025 1 [facility] [id number] Eusebia Goff [id number] Tessie Goff Notes Date Note Type Note Provider Name and Address Organization Details Recorded Time 07/13/20 18 text/htm l ROS as noted in the HPI BAKARI titer off - done by by opthalmologist, diagnosed recently with iritis on prednisolone gtts Pt was having blurry vision f/u rheumatology appt this upcoming Monday has had uvula swell up on/off- happened again last week, resolved after 1/2 day last night felt lump just below right collarbone and is very concerned 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 For fracture risk, patient reportsno history of fractures,no recent explained fracture,no sudden unexplained fractures, andno previous musculoskeletal injuries. For physical activity, patient reportsexercises on a regular basis,recent increase in physical activity, andgood physical condition. For additional lifestyle factors, patient reportsno tobacco use,no alcohol intake, andstopped drinking alcohol.Mental Status:For depression risk, patient reportsnever feels sad, empty, or tearful,no loss of interest in activities,no significant changes in weight,no sleep disturbances or insomnia,no agitation,no loss of energy,no feelings of worthlessness or guilt,no thoughts of suicide,no history of depression, andno history of mood disorders.Functional AbilityFor hearing, patient reportsno loss of hearing. For vision, patient reportsno vision problems(last eye appt was last month). the patient reports she has been having [...] 209) which abnormally high TAISHA PEÑA [address] [place], [address], [facility] 02/02/2022 09:40:45 03/22/20 text/htm l ROS as noted in the HPI c/o rash the patient reports that she [...] denies sob, chest pain TAISHA PEÑA [address] [place], [address], [facility] 03/22/2022 10:45:35 12/28/19 23 text/htm l ROS as noted in the HPI here for rechk and eval of ongoing low back painstates located middle of back at base of spinepressure like aching no radiation down legsalso pt has been bothered with occ rectal bleed with bm and knows she has int hemorrhoids Willian Lau DO [address] [place], [address], [facility] 12/27/2022 14:40:55 06/25/20 25 text/htm l Annual WellnessReported by PatientSocial/Behavioral HistoryFor diet and nutrition, patient reportshealthy diet,discussed vitamin and supplement use,discussed portion control,discussed maintaining calcium balance, anddiscussed diet improvement. For fracture risk, patient reportsno history of fractures,no recent explained fracture,no sudden unexplained fractures, andno previous musculoskeletal injuries. For physical activity, patient reportsexercises on a regular basis,recent increase in physical activity, andgood physical condition. For additional lifestyle factors, patient reportsno tobacco use,no alcohol intake, andstopped drinking alcohol.Mental Status:For depression risk, patient reportsnever feels sad, empty, or tearful,no loss of interest in activities,no significant changes in weight,no sleep disturbances or insomnia,no agitation,no loss of energy,no feelings of worthlessness or guilt,no thoughts of suicide,no history of depression, andno history of mood disorders.Functional AbilityFor hearing, patient reportsno loss of hearing. For vision, patient reportsno vision problems.ROS as noted in the HPI the patient reports she is feeling more fatigued than usualthe patient reports that she recently switched her work schedule, she is more sedentary at work the patient is having so chest pain, the patient reports she was supposed to have holter, didn't happen the patient has some palpationsrecommended US echo and stress test TAISHA PEÑA [address] [facility], [place], [address], [facility] 06/25/2025 16:09:13 OBGyn Episode No OBEpisode recorded.
--- OUTSIDE RECORDS SUMMARY | 2025-07-15 11:03 | XMS_ITS | Patient Health Record ---
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 Name Role Phone Shabanalb Willian Primary Care Provider Pio Masters Jr Unavailable [phone] Fermin PRADHAN, Areli Unavailable Unavailable Reason For Referral No Information Medications Medication SIG (Take, Route, Frequency, Duration) Notes Start Date End Date Status prednisoLONE Acetate 1 % 1 drop into aff ected eye Ophthalmic Twice a day Active Proctofoam HC 1-1 % 1 application Manager Produce ally Three times a day; Duration: 30 days 04/15/2022 Active Immunizations Vaccine Route Administration Date Status Comme nts Influenza Unknown 07/19/2018 Refused Social History Tobacco Use: Social History Observation Description Date Details (start date - stop date) Former Smoker NA - NA Tobacco Use/Smoking Question Answer Notes Patient is a former smoker When did you stop smoking? 20 years How long has it been since you last smoked? > 10 years Alcohol Screen Question Answer Notes Did you have a drink contain ing alcohol in the past year? Yes How often did you have a dri nk containing alcohol in the past year? 2 to 3 times a week (3 points) How many drinks did you have on a typical day when you were drinking in the past year? 1 or 2 drinks (0 point) How often did you have 6 or more drinks on one occasion in the past year? Never (0 point) Points 3 Interpretation Positive Problems Problem Type SNOMED Code ICD Code Onset Dates Problem Status W/U Status Risk Notes Problem Rectal bleeding (02355802) Rectal bleeding (K62.5) Active confirmed Plan Of Treatment Future Test Test Name Order Date COLONOSCOPY 08/16/2017 Insurance Providers Payer Name Payer Address Payer Phone Subscriber Number Group Number Insured Name Patient Relationship to Insured Coverage Start Date Coverage End Date [facility] [address] [place] [phone] [id number] LISBETH CORMIER Self - patient is the insured Medical (General) History Medical History History ICD Code Denies [place],DM,CVA,Lung disease,renal dise ase Surgical History Surgery Date(Month/Year) appendectomy 1995 section x2 2000,2002 breast augmentation 2006
--- OUTSIDE RECORDS SUMMARY | 2025-07-15 11:03 | XMS_ITS | Clinical Summary ---
Author Organization [facility] Address [address] [place] [phone] Phone Care Team Providers Care Parking Meter Installer Name Role Phone Willian Lau DO Primary Care Provider Allergies No known active allergies Medications triamcinolone acetonide 0.1 % ointment As needed Active tiZANidine (ZANAFLEX) 2 MG tablet Take 2 mg by mouth as needed. Active hydrocortisone 2.5 % cream Apply topically as needed. 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 Not on lora e 12/30/2022 Are you concerned about learning? Not on file 12/30/2022 No 12/30/2022 No 12/30/2022 Digital Access Answer Date Recorded No 01/30/2023 No 01/30/2023 Reliable internet access at home? Not on file 01/30/2023 Device with a working camera? Not on file Comments Unknown Sex and Gender Information Value Date Recorded Sex Assigned at Not on file Legal Sex Female 9:28 PM EDT Gender Identity Not on file Sexual Orientation Not on file Last Filed Vital Signs Vital Sign Reading Time Taken Comments Blood Pressure 108/64 08/15/2023 3:12 PM EST Pulse 61 08/15/2023 3:12 PM EST Temperature 36.9 C (98.4 F) 08/15/2023 3:12 PM EST Respiratory Rate - - Oxygen Saturation 98% 08/15/2023 3:12 PM EST Inhaled Oxygen Concentration - - Weight 88.7 kg (195 lb 9.6 oz) 08/15/2023 3:12 P M EST Height 163.6 cm (5' 4.41 ) 04/10/2019 2:48 PM ED T Body Mass Index 33.15 04/10/2019 2:48 PM EDT Plan of Treatment Health Maintenance Due Date Last Done Comments Adult Td,Tdap Booster 1975 LIPID PANEL 1975 DEPRESSION SCREENING 1987 SMOKING Hx and SMOKELESS TOB ACCO SCREENING 1988 HEPATITIS C SCREENING 1993 HIV ONE-TIME SCREENING (18-6 5 YEARS) 1993 PAP SMEAR 1996 SCREENING FOR DIABETES 2010 MAMMOGRAM 2015 COLOGUARD 2020 COLONOSCOPY 2020 COLORECTAL CANCER SCREENING 2020 FIT TEST 2020 FOBT 2020 SIGMOIDOSCOPY 2020 VIRTUAL COLONOSCOPY 2020 INFLUENZA VACCINE (#1) 2025 COVID-19 VACCINE (1 - 2024-2 6 season) 2025 PNEUMOCOCCAL VACCINES (50+ y ears) (1 of 1 - PCV) 2025 ZOSTER VACCINES (1 of 2) 2025 RSV VACCINE (1 - 1-dose 75+ series) 2050 HEPATITIS A VACCINES Aged Out No long er eligible based on patient's age to complete this topic HIB VACCINES Aged Out No longer eligi ble based on patient's age to complete this topic IPV VACCINES Aged Out No longer eligi ble based on patient's age to complete this topic MENINGOCOCCAL VACCINES (ACWY) Aged Out No longer eligible based on patient's age to complete this topic MENINGOCOCCAL VACCINES (B) Aged Out N o longer eligible based on patient's age to complete this topic Medical Devices Not on file [facility] [address] [place] [address] [facility] [address] [place] [address] [place] [address] [facility] [address] [place], [place] [address] Care Teams Parking Meter Installer Relationship Specialty Start Date End Date Willian Lau DO [email or web address] PCP - General Internal Medicine 05/15/18 Additional Source Comments The information contained in this document represents components of the legal health record. It is not the complete legal health record.[facility]
[2025-07-15 11:29] LABS: Alanine Aminotransferase 24 U/L (0-31); Anion Gap 11 (12-20); Aspartate Amino Transferase 25 U/L (5-31); Blood Urea Nitrogen 12 mg/dL (9-16); Calcium 8.7 mg/dL (8.4-10.2); Carbon Dioxide 25 mmol/L (22-29); Chloride 109 mmol/L (96-108); Estimated Glomerular Filt Rate > 60; Iron 112 mcg/dL (30-160); Percent Iron Saturation 48 % (15-50); Potassium 4.4 mmol/L (3.3-5.1); Sodium 141 mmol/L (135-145); Total Iron Binding Capacity 234 mcg/dL (228-428); Total Protein 6.6 g/dL (6.5-8.0); Unsaturated Iron Binding 122 ug/dL
[2025-07-15 11:30] LABS: Albumin Level 4.2 g/dL (3.5-5.0); Alkaline Phosphatase 51 U/L (39-117); Cholesterol 227 mg/dL (<200); HDL Cholesterol 58 mg/dL (>40); Triglycerides 156 mg/dL (<150)
[2025-07-15 11:51] LABS: Ferritin 37 ng/mL (10-250)
[2025-07-15 11:54] LABS: Folate 6.8 ng/mL (> or = 4.0); Vitamin B12 414 pg/mL (200-900)
== END 2025-07-15 09:48 | disposition home or self-care (01) ==
LOC: HO.LAB 09:47
PROVIDERS: PCP Internal Medicine; Visit Provider Physician Assistant
DX: Z13.1 Encounter for screening for diabetes mellitus (principal); Z13.21 Encounter for screening for nutritional disorder; R07.89 Other chest pain; R53.83 Other fatigue
CPT/HCPCS: 36415; 80053; 80061; 82306; 82607; 82728; 82746; 83036; 83540; 84443; 85025